=== PATIENT | female | born 1955 | race Caucasian/White ===

== ENCOUNTER 2018-01-12 09:18 | Day surgery (SDC) | payer OTHER ==
[2018-01-12] MEDS ORDERED: MIDAZOLAM 1 MG/ML 2 ML INJ (11:21)
[2018-01-12] MEDS ORDERED: FENTAnyl 50 MCG/ML VIAL (11:21)
== END 2018-01-12 12:21 | disposition home or self-care (01) ==
LOC: GIL 09:18
DX: Z12.11 Encounter for screening for malignant neoplasm of colon (principal); K63.5 Polyp of colon; K64.8 Other hemorrhoids
CPT/HCPCS: 45380; 88305